=== PATIENT | female | born 1995 | race African-American/Black ===

== ENCOUNTER 2018-10-07 12:01 | Observation (INO) | payer MEDICAID ==
[~2018-10-07] VITALS: Ht 162.6 cm; Wt 83.5 kg
== END 2018-10-07 14:55 | disposition home or self-care (01) ==
LOC: 8 EST LDRP 12:01
PROVIDERS: ADMIT Obstetrics & Gynecology; ATTEND Obstetrics & Gynecology
DX: O36.5930 Maternal care for other known or suspected poor fetal growth, third trimester, not applicable or unspecified (principal); Z3A.37 37 weeks gestation of pregnancy
CPT/HCPCS: 76805; 76818; 99281; G0378